=== PATIENT | female | born 1990 | race Caucasian/White ===

== ENCOUNTER 2017-03-10 23:58 | Emergency (ER) | payer MEDICAID ==
[~2017-03-10] VITALS: Ht 149.9 cm; Wt 53.8 kg
[2017-03-11 00:24] VITALS: BP 113/58
== END 2017-03-11 02:20 | disposition left against medical advice (07) ==
LOC: ER 23:59
DX: O20.9 Hemorrhage in early pregnancy, unspecified (principal); Z3A.01 Less than 8 weeks gestation of pregnancy; Z53.21 Procedure and treatment not carried out due to patient leaving prior to being seen by health care provider

== ENCOUNTER 2017-05-09 06:05 | Emergency (ER) | payer MEDICAID ==
[~2017-05-09] VITALS: Ht 149.9 cm; Wt 55.0 kg
[2017-05-09] MEDS ORDERED: ACETAMINOPHEN 325MG TABLET PO ONE (07:15)
[2017-05-09 09:56] LABS: CLARITY URINE CLOUDY (CLEAR); COLOR URINE YELLOW (YELLOW); GLUCOSE URINE NEGATIVE (NEGATIVE); KETONES URINE TRACE (NEGATIVE); LEUKOCYTE ESTERASE URINE 1+ (NEGATIVE); NITRITE URINE NEGATIVE (NEGATIVE); OCCULT BLOOD URINE NEGATIVE (NEGATIVE); PH URINE 5.5 (4.5-8.0); PROTEIN URINE TRACE (NEGATIVE); SPECIFIC GRAVITY URINE 1.034 (1.005-1.030)
[2017-05-09 11:01] VITALS: BP 131/36
== END 2017-05-09 11:38 | disposition home or self-care (01) ==
LOC: ER 07:21
DX: O26.891 Other specified pregnancy related conditions, first trimester (principal); R10.84 Generalized abdominal pain; R10.32 Left lower quadrant pain; Z3A.12 12 weeks gestation of pregnancy
CPT/HCPCS: 76801; 76817; 81001; 99285; Z7610

== ENCOUNTER 2017-06-26 18:46 | Emergency (ER) | payer MEDICAID ==
[~2017-06-26] VITALS: Ht 149.9 cm; Wt 54.0 kg
[2017-06-26] MEDS ORDERED: SODIUM CHLORIDE 0.9% 1,000 ML IV ONE (21:59)
[2017-06-26] MEDS ORDERED: ACETAMINOPHEN 325MG TABLET PO STA (21:59)
[2017-06-26] MEDS ORDERED: ONDANSETRON HCL 4MG/2ML VIAL IV STA (21:59)
[2017-06-26] MEDS ORDERED: FAMOTIDINE 20MG/2ML VIAL IV ONE (22:00)
[2017-06-26 22:33] LABS: BASOPHILS % 0.4 % (0.0-2.0); EOSINOPHILS % 0.4 % (0.0-5.0); HEMATOCRIT. 35.4 % (36.0-48.0); HEMOGLOBIN. 12.3 g/dL (12.0-16.0); LYMPHOCYTES % 21.2 % (20.0-50.0); MEAN CORPUSCULAR HEMOGLOBIN 30.5 pg (28.0-32.0); MEAN PLATELET VOLUME 8.9 fl (7.4-10.4); MONOCYTES % 6.2 % (2.0-8.0); NEUTROPHILS % 71.8 % (40.0-76.0); PLATELET 197 x1000/uL (130-400); RED BLOOD CELL COUNT 4.03 mill/uL (4.2-5.4); RED CELL DISTRIBUTION WIDTH 13.3 % (11.6-14.6)
[2017-06-26 22:36] LABS: CHLORIDE 106 mEq/L (98-107)
[2017-06-26 22:44] LABS: CARBON DIOXIDE 20 mEq/L (21-32)
[2017-06-26 23:00] LABS: B-HCG QUANTITATIVE 13341 mIU/mL (<3)
[2017-06-26 23:52] LABS: CLARITY URINE CLOUDY (CLEAR); COLOR URINE YELLOW (YELLOW); GLUCOSE URINE NEGATIVE (NEGATIVE); KETONES URINE 3+ (NEGATIVE); LEUKOCYTE ESTERASE URINE 2+ (NEGATIVE); NITRITE URINE NEGATIVE (NEGATIVE); OCCULT BLOOD URINE NEGATIVE (NEGATIVE); PH URINE 5.5 (4.5-8.0); PROTEIN URINE TRACE (NEGATIVE); SPECIFIC GRAVITY URINE 1.033 (1.005-1.030)
[2017-06-27 02:00] VITALS: BP 127/86
== END 2017-06-27 02:24 | disposition home or self-care (01) ==
LOC: ER 22:08
DX: O20.0 Threatened abortion (principal); O23.42 Unspecified infection of urinary tract in pregnancy, second trimester; O21.9 Vomiting of pregnancy, unspecified; N39.0 Urinary tract infection, site not specified; Z3A.19 19 weeks gestation of pregnancy
CPT/HCPCS: 36415; 76705; 76815; 80053; 81001; 83690; 84702; 85025; 86850; 86900; 96361; 96374; 96375; 99285; J2405; J3490; J7030

== ENCOUNTER 2017-10-01 20:33 | Observation (INO) | payer MEDICAID ==
[~2017-10-01] VITALS: Ht 149.9 cm; Wt 56.2 kg
[2017-10-01] MEDS ORDERED: LACTATED RINGERS 1,000 ML IV NR (21:30)
[2017-10-02] MEDS ORDERED: PNV1TABL76 MT (00:17)
== END 2017-10-02 00:30 | disposition home or self-care (01) ==
LOC: L&D 20:33
PROVIDERS: ADMIT Specialist; ATTEND Specialist
DX: O46.93 Antepartum hemorrhage, unspecified, third trimester (principal); Z3A.33 33 weeks gestation of pregnancy
CPT/HCPCS: 76805; 76818; 96360; 96361; 99281; G0378; J7120

== ENCOUNTER 2017-10-21 03:35 | Inpatient (IN) | payer MEDICAID ==
[~2017-10-21] VITALS: Ht 149.9 cm; Wt 56.7 kg
[~2017-10-21 03:35] MED LIST: PNV1TABL76 MT
[2017-10-21] MEDS ORDERED: TERBUTALINE SULFATE 1MG/ML VIAL SUBCUT PRN (04:15)
[2017-10-21] MEDS ORDERED: LACTATED RINGERS 1,000 ML IV SCH (04:35)
[2017-10-21] MEDS ORDERED: DEXT 5%/LR + PITOCIN 20UNITS/L 1,000 ML IV SCH ×2 (04:35→07:30)
[2017-10-21] MEDS ORDERED: BUTORPHANOL TARTRATE 2 MG/ML VIAL IV PRN (04:45)
[2017-10-21] MEDS ORDERED: NALOXONE HCL 0.4 MG/ML 1ML VIAL IM PRN (04:45)
[2017-10-21] MEDS ORDERED: LIDOCAINE HCL 1% 20ML VIAL (Pyxis) INJ INFIL SCH (04:45)
[2017-10-21] MEDS ORDERED: METHYLERGONOVINE MALEATE 0.2 MG/ML IM PRN (04:45)
[2017-10-21] MEDS ORDERED: CARBOPROST TROMETHAMINE 250 MCG/ML AMPUL IM PRN (04:45)
[2017-10-21] MEDS ORDERED: MISOPROSTOL 100MCG TABLET VG SCH (04:45)
[2017-10-21] MEDS ORDERED: PENICILLIN G POTASSIUM 5 MMU in DEXT 5% WATER 100 ML IV SCH (05:00)
[2017-10-21 06:13] LABS: BASOPHILS % 0.3 % (0.0-2.0); EOSINOPHILS % 0.3 % (0.0-5.0); HEMATOCRIT. 35.7 % (36.0-48.0); LYMPHOCYTES % 28.9 % (20.0-50.0); MEAN CORPUSCULAR HEMOGLOBIN 28.2 pg (28.0-32.0); MEAN PLATELET VOLUME 10.2 fl (7.4-10.4); MONOCYTES % 6.1 % (2.0-8.0); NEUTROPHILS % 64.4 % (40.0-76.0); PLATELET 165 x1000/uL (130-400); RED BLOOD CELL COUNT 4.25 mill/uL (4.2-5.4); RED CELL DISTRIBUTION WIDTH 13.9 % (11.6-14.6)
[2017-10-21 06:18] LABS: CLARITY URINE CLEAR (CLEAR); COLOR URINE YELLOW (YELLOW); GLUCOSE URINE NEGATIVE (NEGATIVE); KETONES URINE 3+ (NEGATIVE); LEUKOCYTE ESTERASE URINE 3+ (NEGATIVE); NITRITE URINE NEGATIVE (NEGATIVE); OCCULT BLOOD URINE 2+ (NEGATIVE); PROTEIN URINE NEGATIVE (NEGATIVE); SPECIFIC GRAVITY URINE 1.014 (1.005-1.030); UROBILINOGEN URINE 0.2 E.U./dL (0.2-1.0)
[2017-10-21 06:22] LABS: PARTIAL THROMBOPLASTIN TIME 27.5 sec (23.4-31.0); PROTHROMBIN TIME 9.9 sec (9.4-11.6)
[2017-10-21 06:36] LABS: *AMPHETAMINES SCREEN URINE NEGATIVE (NEGATIVE); *BARBITURATES SCREEN URINE NEGATIVE (NEGATIVE); *BENZODIAZEPINES SCREEN URINE NEGATIVE (NEGATIVE); *COCAINE SCREEN URINE NEGATIVE (NEGATIVE); CANNABINOID URINE SCREEN NEGATIVE (NEGATIVE); METHADONE URINE SCREEN NEGATIVE (NEGATIVE); OPIATES URINE SCREEN NEGATIVE (NEGATIVE); PHENCYCLIDINE URINE SCREEN NEGATIVE (NEGATIVE)
[2017-10-21] MEDS ORDERED: GLYCERIN/WITCH HAZEL LEAF MEDICATED PAD TOP PRN (07:30)
[2017-10-21] MEDS ORDERED: HEMORRHOIDAL SUPP PR PRN (07:30)
[2017-10-21] MEDS ORDERED: RHO(D) IMMUNE GLOBULIN 300 MCG/SYR IM PRN (07:30)
[2017-10-21] MEDS ORDERED: LANOLIN OINT 0.25 GM TUBE TOP PRN (07:30)
[2017-10-21] MEDS: ACETAMINOPHEN WITH CODEINE 300/30MG TABLET PO PRN ×3 (08:27→21:18)
[2017-10-21] MEDS ORDERED: PENICILLIN G POTASSIUM 2.5 MMU in DEXTROSE 5% WATER 50 ML IV SCH (09:00)
[2017-10-21 11:00] VITALS: BP 95/50
[2017-10-21 12:30] VITALS: BP 90/60
[2017-10-21 12:42] LABS: HEPATITIS B SURFACE ANTIGEN NEGATIVE; RUBELLA IGG 22.7 IU/mL (4.99-10)
[2017-10-21] MEDS: PRENATAL VIT/FE FUMARATE/FA TABLET PO SCH (13:34)
[2017-10-21 16:20] VITALS: BP 103/47
[2017-10-21 19:35] VITALS: BP 109/48
[2017-10-21] MEDS: DOCUSATE SODIUM 100MG CAPSULE PO SCH (21:19)
[2017-10-22] VITALS: BP 100/59
[2017-10-22] MEDS ORDERED: TETANUS, DIPHTHERIA, PERTUSSIS VAC/PF 0.5ML (>7YR OLD) IM ONE (02:15)
[2017-10-22] MEDS: ACETAMINOPHEN WITH CODEINE 300/30MG TABLET PO PRN ×2 (03:43→15:40)
[2017-10-22 07:24] LABS: BASOPHILS % 0.4 % (0.0-2.0); EOSINOPHILS % 0.9 % (0.0-5.0); HEMATOCRIT. 33.6 % (36.0-48.0); HEMOGLOBIN. 11.3 g/dL (12.0-16.0); LYMPHOCYTES % 22.8 % (20.0-50.0); MEAN CORPUSCULAR HEMOGLOBIN 28.1 pg (28.0-32.0); MEAN CORPUSCULAR VOLUME 83.5 fL (81.0-99.0); MEAN PLATELET VOLUME 9.4 fl (7.4-10.4); MONOCYTES % 3.9 % (2.0-8.0); PLATELET 154 x1000/uL (130-400); RED BLOOD CELL COUNT 4.03 mill/uL (4.2-5.4); RED CELL DISTRIBUTION WIDTH 13.9 % (11.6-14.6)
[2017-10-22 08:20] VITALS: BP 101/53
[2017-10-22] MEDS: FERROUS SULFATE 325MG TABLET PO SCH (14:21)
[2017-10-22] MEDS: PRENATAL VIT/FE FUMARATE/FA TABLET PO SCH (14:21)
[2017-10-22] MEDS: IBUPROFEN 400MG TABLET PO PRN ×2 (15:36→21:54)
[2017-10-22 20:00] VITALS: BP 90/54
[2017-10-22] MEDS: DIPHENHYDRAMINE 25MG CAPSULE PO PRN (21:03)
[2017-10-22] MEDS: DOCUSATE SODIUM 100MG CAPSULE PO SCH (21:03)
[2017-10-23] MEDS: ACETAMINOPHEN WITH CODEINE 300/30MG TABLET PO PRN (01:08)
[2017-10-23] MEDS: DIPHENHYDRAMINE 25MG CAPSULE PO PRN (03:24)
[2017-10-23 05:34] VITALS: BP 90/55
[2017-10-23 07:34] VITALS: BP 90/50
[2017-10-23] MEDS: FERROUS SULFATE 325MG TABLET PO SCH (08:19)
[2017-10-23] MEDS: PRENATAL VIT/FE FUMARATE/FA TABLET PO SCH (08:19)
[2017-10-23] MEDS: IBUPROFEN 400MG TABLET PO PRN (08:19)
== END 2017-10-23 14:10 | disposition home or self-care (01) | DRG 560 ==
LOC: L&D 03:35 → OBSVTOIN 03:35 → 7EST PP/OB 09:48
PROVIDERS: ADMIT Specialist; ATTEND Specialist
PROC: 10E0XZZ Delivery of Products of Conception, External Approach (ICD-10-PCS; principal; 2017-10-21 06:41)
DX: O99.03 Anemia complicating the puerperium (principal); D62 Acute posthemorrhagic anemia; Z3A.36 36 weeks gestation of pregnancy; Z37.0 Single live birth
CPT/HCPCS: 36415; 80305; 81001; 85025; 85610; 85730; 86592; 86703; 86762; 86850; 86900; 87340; 90715; J0595; J2310; J2540; J2590; J7060; J7120; Q0163

== ENCOUNTER 2020-06-16 11:55 | Emergency (ER) | payer MEDICAID ==
[~2020-06-16] VITALS: Ht 149.9 cm; Wt 57.0 kg
[2020-06-16] MEDS ORDERED: SODIUM CHLORIDE 0.9% 1,000 ML IV ONE (12:59)
[2020-06-16] MEDS ORDERED: ACETAMINOPHEN 325MG TABLET PO STA (12:59)
[2020-06-16 13:17] LABS: CLARITY URINE CLOUDY (CLEAR); COLOR URINE YELLOW (YELLOW); KETONES URINE TRACE (NEGATIVE); LEUKOCYTE ESTERASE URINE TRACE (NEGATIVE); NITRITE URINE NEGATIVE (NEGATIVE); OCCULT BLOOD URINE NEGATIVE (NEGATIVE); PROTEIN URINE 2+ (NEGATIVE); SPECIFIC GRAVITY URINE 1.018 (1.005-1.030); UROBILINOGEN URINE 0.2 E.U./dL (0.2-1.0)
[2020-06-16 13:35] LABS: BASOPHILS % 0.4 % (0.0-2.0); EOSINOPHILS % 0.2 % (0.0-5.0); HEMATOCRIT. 36.7 % (36.0-48.0); HEMOGLOBIN. 12.4 g/dL (12.0-16.0); LYMPHOCYTES % 8.5 % (20.0-50.0); MEAN CORPUSCULAR VOLUME 80.3 fL (81.0-99.0); MEAN PLATELET VOLUME 8.8 fl (7.4-10.4); MONOCYTES % 5.7 % (2.0-8.0); NEUTROPHILS % 85.2 % (40.0-76.0); PLATELET 233 x1000/uL (130-400); RED BLOOD CELL COUNT 4.57 mill/uL (4.2-5.4); RED CELL DISTRIBUTION WIDTH 15.6 % (11.6-14.6)
[2020-06-16 13:42] LABS: CHLORIDE 109 mEq/L (98-107)
[2020-06-16 14:14] LABS: B-HCG QUANTITATIVE 20644 mIU/mL (<3)
[2020-06-16 14:39] VITALS: BP 131/80
== END 2020-06-16 15:10 | disposition home or self-care (01) ==
LOC: ER 11:55
DX: O26.891 Other specified pregnancy related conditions, first trimester (principal); R10.9 Unspecified abdominal pain; R82.71 Bacteriuria; Z3A.01 Less than 8 weeks gestation of pregnancy; Y08.89XA Assault by other specified means, initial encounter; Y93.9 Activity, unspecified; Y92.9 Unspecified place or not applicable
CPT/HCPCS: 36415; 76705; 76801; 76817; 80053; 81003; 81025; 83690; 84702; 85025; 93005; 99285; J7030

== ENCOUNTER 2021-05-17 15:27 | Emergency (ER) | payer MEDICAID, MEDICARE ==
[~2021-05-17] VITALS: Ht 149.9 cm; Wt 59.0 kg
[2021-05-17 15:47] VITALS: BP 112/65
[2021-05-17] MEDS ORDERED: ACETAMINOPHEN 325MG TABLET PO ONE (16:15)
[2021-05-17] MEDS ORDERED: ACET-2708 MT (16:54)
== END 2021-05-17 17:20 | disposition home or self-care (01) ==
LOC: ER 16:18
DX: S90.111A Contusion of right great toe without damage to nail, initial encounter (principal); W22.8XXA Striking against or struck by other objects, initial encounter; Y93.01 Activity, walking, marching and hiking; Y92.831 Amusement park as the place of occurrence of the external cause
CPT/HCPCS: 73660; 81025; 99283; Z7610

== ENCOUNTER 2022-10-29 11:21 | Emergency (ER) | payer MEDICARE ==
[~2022-10-29] VITALS: Ht 149.9 cm; Wt 64.0 kg
[~2022-10-29 11:21] MED LIST changes: +ACET-2708 MT
[2022-10-29] MEDS ORDERED: KETOROLAC 30MG/ML VIAL IM ONE (13:00)
[2022-10-29 13:15] VITALS: BP 109/76
[2022-10-29] MEDS ORDERED: IBUP-2029 MT (15:45)
== END 2022-10-29 16:11 | disposition home or self-care (01) ==
LOC: ER 11:21
DX: S96.811A Strain of other specified muscles and tendons at ankle and foot level, right foot, initial encounter (principal); X58.XXXA Exposure to other specified factors, initial encounter; Y93.01 Activity, walking, marching and hiking; Y92.89 Other specified places as the place of occurrence of the external cause
CPT/HCPCS: 36415; 85379; 93971; 96372; 99284; J1885